=== PATIENT | male | born 1960 | race African-American/Black ===

== ENCOUNTER 2024-08-27 16:08 | Emergency (ER) | payer OTHER ==
[~2024-08-27] VITALS: Ht 170.2 cm; Wt 118.0 kg
[2024-08-27 16:11] VITALS: BP 155/90; PULSE 66; RESP 18; TEMP 98.2; O2SAT 98
== END 2024-08-27 19:13 ==
LOC: ER 16:08
DX: I20.89 Other forms of angina pectoris (principal); I25.2 Old myocardial infarction; F19.90 Other psychoactive substance use, unspecified, uncomplicated
CPT/HCPCS: 71045; 93005; 99283

== ENCOUNTER 2024-10-09 15:22 | Emergency (ER) | payer OTHER ==
[~2024-10-09] VITALS: Ht 170.2 cm; Wt 121.0 kg
[2024-10-09 15:29] VITALS: TEMP 99.2; O2SAT 95
[2024-10-09 16:22] LABS: BASOPHILS % 0.5 % (0.0-2.0); EOSINOPHILS % 1.1 % (0.0-5.0); HEMATOCRIT. 49.5 % (42.0-52.0); HEMOGLOBIN. 15.9 g/dL (14.0-18.0); LYMPHOCYTES % 13.6 % (20.0-50.0); MEAN CORPUSCULAR HGB CONC 32.1 g/dL (31.0-37.0); MEAN CORPUSCULAR VOLUME 90.2 fL (80.0-94.0); MEAN PLATELET VOLUME 7.4 fl (7.4-10.4); NEUTROPHILS % 70.8 % (40.0-76.0); PLATELET 214 x1000/uL (130-400); RED BLOOD CELL COUNT 5.49 mill/uL (4.7-6.1); RED CELL DISTRIBUTION WIDTH 14.5 % (11.6-14.6); WHITE BLOOD COUNT 7.3 x1000/uL (4.5-11.0)
[2024-10-09 16:26] LABS: CARBON DIOXIDE 26 mEq/L (21-32); CHLORIDE 103 mEq/L (98-107); POTASSIUM 4.2 mEq/L (3.5-5.1); SODIUM 138 mEq/L (136-145)
[2024-10-09 16:27] LABS: CALCIUM 10.8 mg/dL (8.7-10.4)
[2024-10-09 16:31] LABS: PARTIAL THROMBOPLASTIN TIME 30.2 sec (23.4-31.0); PROTHROMBIN TIME 11.3 sec (9.6-11.0)
[2024-10-09 16:32] LABS: CREATININE 0.9 mg/dL (0.6-1.3); GLUCOSE 95 mg/dL (70-105); UREA NITROGEN BLOOD 17 mg/dL (9-23)
[2024-10-09 16:34] LABS: TROPONIN I HIGH SENSITIVITY 5 ng/L (3.0-53)
[2024-10-09 19:28] LABS: TROPONIN I HIGH SENSITIVITY 6 ng/L (3.0-53)
[2024-10-09 19:38] VITALS: BP 110/74; PULSE 83; RESP 24; O2SAT 96
== END 2024-10-09 19:50 | disposition home or self-care (01) ==
LOC: ER 15:22
DX: R07.89 Other chest pain (principal); E11.9 Type 2 diabetes mellitus without complications; E78.00 Pure hypercholesterolemia, unspecified; I11.0 Hypertensive heart disease with heart failure; I25.2 Old myocardial infarction; I50.9 Heart failure, unspecified
CPT/HCPCS: 80048; 83880; 85025; 85610; 85730; 84484; 36415; 71045; 93005; 99285; Z7610 ×2

== ENCOUNTER 2025-09-04 15:13 | Inpatient (IN) | payer OTHER ==
[~2025-09-04] VITALS: Ht 165.1 cm; Wt 133.1 kg
[2025-09-04 15:18] VITALS: O2SAT 100
[2025-09-04 18:22] LABS: BASOPHILS % 0.6 % (0.0-2.0); EOSINOPHILS % 1.8 % (0.0-5.0); HEMATOCRIT. 47.2 % (42.0-52.0); HEMOGLOBIN. 15.0 g/dL (14.0-18.0); LYMPHOCYTES % 33.7 % (20.0-50.0); MEAN PLATELET VOLUME 8.3 fl (7.4-10.4); MONOCYTES % 7.3 % (2.0-8.0); NEUTROPHILS % 56.6 % (40.0-76.0); PLATELET 176 x1000/uL (130-400); RED BLOOD CELL COUNT 5.38 mill/uL (4.7-6.1); RED CELL DISTRIBUTION WIDTH 14.2 % (11.6-14.6)
[2025-09-04 18:33] LABS: INR 1.0
[2025-09-04 18:36] LABS: CREATININE 0.7 mg/dL (0.6-1.3)
[2025-09-04 18:37] LABS: TROPONIN I HIGH SENSITIVITY 8 ng/L (3.0-53); UREA NITROGEN BLOOD 10 mg/dL (9-23)
[2025-09-04 18:38] LABS: ASPARTATE AMINOTRANSFERASE 16 IU/L (<34)
[2025-09-04 18:39] LABS: BILIRUBIN DIRECT 0.2 mg/dL (<=3.0); BILIRUBIN TOTAL 0.8 mg/dL (0.1-1.0); PROTEIN TOTAL 6.8 g/dL (6.0-8.3)
[2025-09-04] MEDS ORDERED: GUAIFENESIN 200MG/10ML SUGAR FREE UDC PO PRN (20:15)
[2025-09-04] MEDS ORDERED: IPRATROPIUM/ALBUTEROL 0.5-3(2.5)MG/3ML NEB HHN PRN (20:15)
[2025-09-04] MEDS ORDERED: CLONIDINE 0.1MG TABLET PO PRN (20:15)
[2025-09-04] MEDS ORDERED: ACETAMINOPHEN 325MG TABLET PO PRN ×2 (20:15)
[2025-09-04] MEDS ORDERED: ONDANSETRON HCL 4MG/2ML INJ IV PRN (20:15)
[2025-09-04] MEDS ORDERED: MAGNESIUM/ALUMINUM HYDROXIDE/SIMETHICONE 30ML UDC PO PRN (20:15)
[2025-09-04] MEDS ORDERED: DOCUSATE SODIUM 100MG CAPSULE PO PRN (20:15)
[2025-09-04] MEDS ORDERED: NITROGLYCERIN 0.4MG TABLET SL SL PRN (20:15)
[2025-09-04 20:32] LABS: TROPONIN I HIGH SENSITIVITY 7 ng/L (3.0-53)
[2025-09-04 21:20] VITALS: BP 154/75; PULSE 71; RESP 16; TEMP 36.7516
[2025-09-04 22:06] VITALS: BP 154/95; PULSE 71; RESP 22; TEMP 36.7; O2SAT 97
[2025-09-04 23:44] LABS: CLARITY URINE CLEAR (CLEAR); COLOR URINE YELLOW (YELLOW); GLUCOSE URINE NEGATIVE (NEGATIVE); KETONES URINE TRACE (NEGATIVE); LEUKOCYTE ESTERASE URINE NEGATIVE (NEGATIVE); NITRITE URINE NEGATIVE (NEGATIVE); OCCULT BLOOD URINE NEGATIVE (NEGATIVE); PH URINE 5.5 (4.5-8.0); PROTEIN URINE TRACE (NEGATIVE); SPECIFIC GRAVITY URINE 1.032 (1.005-1.030); UROBILINOGEN URINE 1.0 E.U./dL (0.2-1.0)
[2025-09-04 23:57] LABS: *AMPHETAMINES SCREEN URINE NEGATIVE (NEGATIVE); *BARBITURATES SCREEN URINE NEGATIVE (NEGATIVE); *BENZODIAZEPINES SCREEN URINE NEGATIVE (NEGATIVE); *COCAINE SCREEN URINE NEGATIVE (NEGATIVE); CANNABINOID URINE SCREEN NEGATIVE (NEGATIVE); ECSTASY MDMA SCREEN URINE NEGATIVE (NEGATIVE); METHADONE URINE SCREEN NEGATIVE (NEGATIVE); OPIATES URINE SCREEN NEGATIVE (NEGATIVE); PHENCYCLIDINE URINE SCREEN NEGATIVE (NEGATIVE)
[2025-09-05] VITALS: BP 106/58; PULSE 65; RESP 20; TEMP 36.7; O2SAT 96
[2025-09-05 00:10] LABS: MUCUS URINE 2+ /lpf (NONE/TRACE); SQUAMOUS EPITHELIAL CELL URINE NONE SEEN /lpf (RARE/1+)
[2025-09-05 00:11] LABS: BACTERIA URINE TRACE; CALCIUM OXALATE CRYSTALS URINE 1+ /lpf; RBC URINE NONE SEEN /hpf (0-2)
[2025-09-05 01:20] LABS: TROPONIN I HIGH SENSITIVITY 10 ng/L (3.0-53)
[2025-09-05 01:21] LABS: CREATINE KINASE MB FRACTION < 0.5 ng/mL (0.5-3.6)
[2025-09-05] MEDS: AMLODIPINE 10MG TABLET PO SCH (01:45)
[2025-09-05 04:00] VITALS: BP 127/66; PULSE 64; RESP 21; TEMP 36.6; O2SAT 99
[2025-09-05 08:00] VITALS: BP 139/79; PULSE 61; RESP 19; TEMP 36.9; O2SAT 100
[2025-09-05] MEDS: ENOXAPARIN 40MG/0.4ML SYR SUBCUT SCH (09:00)
[2025-09-05] MEDS: FAMOTIDINE 20MG/2ML VIAL IV SCH (10:27)
[2025-09-05 12:00] VITALS: BP 106/90; PULSE 67; RESP 23; TEMP 36.7; O2SAT 100
[2025-09-05 16:00] VITALS: BP 129/78; PULSE 71; RESP 26; TEMP 36.9; O2SAT 100
[2025-09-05 18:46] LABS: BASOPHILS % 0.3 % (0.0-2.0); EOSINOPHILS % 2.1 % (0.0-5.0); HEMATOCRIT. 43.9 % (42.0-52.0); HEMOGLOBIN. 14.2 g/dL (14.0-18.0); LYMPHOCYTES % 30.6 % (20.0-50.0); MEAN PLATELET VOLUME 8.5 fl (7.4-10.4); MONOCYTES % 8.0 % (2.0-8.0); NEUTROPHILS % 59.0 % (40.0-76.0); PLATELET 187 x1000/uL (130-400); RED BLOOD CELL COUNT 4.99 mill/uL (4.7-6.1); RED CELL DISTRIBUTION WIDTH 13.9 % (11.6-14.6)
[2025-09-05 19:07] LABS: CREATININE 0.7 mg/dL (0.6-1.3); TRIGLYCERIDE 279 mg/dL (0-150); TROPONIN I HIGH SENSITIVITY 8 ng/L (3.0-53)
[2025-09-05 19:08] LABS: CREATINE KINASE MB FRACTION < 0.5 ng/mL (0.5-3.6); LDL CHOLESTEROL 131 mg/dL (5-100); UREA NITROGEN BLOOD 10 mg/dL (9-23)
[2025-09-05 19:12] LABS: T4 FREE 1.19 ng/dL (0.89-1.76)
[2025-09-05 19:43] VITALS: BP 118/67; PULSE 72; RESP 18; TEMP 37.2; O2SAT 99
[2025-09-05] MEDS: ATORVASTATIN CALCIUM 20MG TABLET PO SCH (21:04)
[2025-09-06 00:16] VITALS: BP 137/82; PULSE 70; RESP 14; TEMP 36.9; O2SAT 98
[2025-09-06 04:33] VITALS: BP 137/79; PULSE 64; RESP 20; TEMP 36.6; O2SAT 96
[2025-09-06 08:00] VITALS: BP 137/80; PULSE 65; RESP 19; TEMP 36.7; O2SAT 96
[2025-09-06] MEDS ORDERED: ATOR20TA MT (09:42)
[2025-09-06] MEDS ORDERED: AMLO10TA80 MT (09:42)
[2025-09-06 09:49] VITALS: BP 137/79; PULSE 65; RESP 19; TEMP 98
[2025-09-06 12:00] VITALS: BP 130/70; PULSE 70; RESP 20; TEMP 36.8; O2SAT 98
== END 2025-09-06 14:30 | DRG 292 ==
LOC: ER 15:13 → EDBEDREQTM 19:51 → EDBEDREQ 19:51 → ENRESERV 20:12 → 3WST 21:09
PROVIDERS: ADMIT Internal Medicine; ATTEND Internal Medicine
DX: I11.0 Hypertensive heart disease with heart failure (principal); Z68.42 Body mass index [BMI] 45.0-49.9, adult; E11.9 Type 2 diabetes mellitus without complications; I50.9 Heart failure, unspecified; E66.01 Morbid (severe) obesity due to excess calories; E78.00 Pure hypercholesterolemia, unspecified; R07.89 Other chest pain
CPT/HCPCS: 36415; 71045; 80048; 80061; 80076; 80305; 81003; 82550; 82553; 82962; 83735; 83880; 84439; 84443; 84484; 85025; 93005; 99285; A4606; J1308; J1650